=== PATIENT | female | born 1990 ===

== ENCOUNTER 2020-07-09 08:00 | Outpatient (CLI) | payer SELFPAY | END 2020-07-09 23:59 | disposition home or self-care (01) | LOC: LAB.S 08:00 | PROVIDERS: ATTEND Physician Assistant Medical | DX: R07.0 Pain in throat (principal) | CPT/HCPCS: 87070; 87275; 87276 ==

== ENCOUNTER 2020-07-09 08:00 | Outpatient (CLI) | payer SELFPAY | END 2020-07-09 23:59 | disposition home or self-care (01) | LOC: LAB.S 08:00 | PROVIDERS: ATTEND Physician Assistant Medical | DX: R07.0 Pain in throat (principal); Z20.822 Contact with and (suspected) exposure to COVID-19; B97.89 Other viral agents as the cause of diseases classified elsewhere ==